=== PATIENT | male | born 1965 | race Two or more races ===

== ENCOUNTER 2019-04-03 11:29 | Outpatient (CLI) | payer OTHER | END 2019-04-03 12:18 | disposition home or self-care (01) | LOC: SONOGRAMA 11:29 | DX: M25.512 Pain in left shoulder (principal); M19.012 Primary osteoarthritis, left shoulder; M25.612 Stiffness of left shoulder, not elsewhere classified ==

== ENCOUNTER 2022-12-19 06:25 | Day surgery (SDC) | payer OTHER ==
[~2022-12-19] VITALS: Ht 188 cm; Wt 88.5 kg
[~2022-12-19 06:25] MED LIST: ACID REDUCER20 M1 PO; DILTIAZEM HCL120 MG; ENALAPRIL MALE2.5 MG PO; LEVOTHYROXINE25 MCG PO; METFORMIN HCL500 M3 PO
== END 2022-12-19 17:35 | disposition home or self-care (01) ==
LOC: CIR.AMB 06:25
PROVIDERS: ATTEND Orthopaedic Surgery Hand Surgery
DX: M24.832 Other specific joint derangements of left wrist, not elsewhere classified (principal); S63.302A Traumatic rupture of unspecified ligament of left wrist, initial encounter; Z20.822 Contact with and (suspected) exposure to COVID-19; I10 Essential (primary) hypertension